=== PATIENT | female | born 1945 ===

== ENCOUNTER 2019-05-31 07:30 | Inpatient (IN) | payer OTHER ==
[~2019-05-31] VITALS: Ht 157.5 cm; Wt 78.0 kg
[2019-05-31] MEDS ORDERED: METFORMIN HCL500 M1 PO (09:45)
[2019-05-31] MEDS ORDERED: SYNTHROID88 MCG PO (09:45)
[2019-05-31] MEDS ORDERED: ATORVASTATIN CA20 MG PO (09:46)
[2019-05-31] MEDS ORDERED: NEURONTIN800 MG PO (09:46)
[2019-05-31] MEDS ORDERED: DICLOFENIC PO (09:47)
[2019-05-31] MEDS ORDERED: METOPROL PO (09:47)
[2019-05-31] MEDS ORDERED: PANTOPRAZOLE SO40 MG PO (09:48)
[2019-05-31] MEDS ORDERED: HYDROCHLOROTH12.5 M1 PO (09:48)
[2019-05-31] MEDS ORDERED: ALENDRONATE SOD70 MG PO (09:49)
[2019-06-08] MEDS ORDERED: TOPROL XL50 M1 PO (08:04)
[2019-06-08] MEDS ORDERED: DICLOFENAC SODI50 MG PO (08:04)
[2019-06-10] MEDS ORDERED: PERCOCET 5-3251 EACH PO (13:37)
[2019-06-10] MEDS ORDERED: ELIQUIS2.5 MG PO (13:37)
[2019-06-10] MEDS ORDERED: DUI500 PO (13:37)
== END 2019-06-10 15:58 | DRG 470 ==
LOC: O/R 07:30 → EDSEX 06-08 04:45 → SURH 06-08 04:45
PROVIDERS: ADMIT Orthopaedic Surgery
PROC: 0MNN0ZZ Release Right Knee Bursa and Ligament, Open Approach (ICD-10-PCS; 2019-06-08)
PROC: 0SRC0J9 Replacement of Right Knee Joint with Synthetic Substitute, Cemented, Open Approach (ICD-10-PCS; principal; 2019-06-08 15:15)
DX: M17.11 Unilateral primary osteoarthritis, right knee (principal); M80.00XA Age-related osteoporosis with current pathological fracture, unspecified site, initial encounter for fracture; D62 Acute posthemorrhagic anemia; I10 Essential (primary) hypertension; E11.9 Type 2 diabetes mellitus without complications; M85.461 Solitary bone cyst, right tibia and fibula; M22.11 Recurrent subluxation of patella, right knee; E03.8 Other specified hypothyroidism; E66.01 Morbid (severe) obesity due to excess calories; Z79.4 Long term (current) use of insulin